=== PATIENT | male | born 1995 | race American Indian/Alaskan Native ===

== ENCOUNTER 2020-01-18 03:59 | Emergency (ER) | payer OTHER ==
--- NOTE | 2020-01-18 05:17 | XRay Report ---
CHEST 2 VIEWS INDICATION / CLINICAL INFORMATION: chestpain. COMPARISON: None available. FINDINGS: SUPPORT DEVICES: None. HEART / MEDIASTINUM: No significant abnormality. LUNGS / PLEURA: No significant pulmonary or pleural abnormality. No pneumothorax. ADDITIONAL FINDINGS: No significant additional findings. IMPRESSION: 1. No acute findings. Signer Name: David Wellington MD Signed: 01/18/2020 5:13 AM Workstation Name: [id number]
[2020-01-18 05:40] LABS: Basophils # (Auto) 0.1 K/mm3 (0.0-0.1); Basophils % (Auto) 1.8 % (0.0-1.8); Eosinophils # (Auto) 0.1 K/mm3 (0.0-0.4); Eosinophils % (Auto) 1.2 % (0.0-4.3); Hemoglobin 16.9 gm/dl (11.8-15.2); Lymphocytes # (Auto) 1.1 K/mm3 (1.2-5.4); Lymphocytes % (Auto) 19.5 % (13.4-35.0); Mean Corpuscular HGB Conc 35 % (32-34); Mean Corpuscular Volume 91 fl (84-94); Monocytes # (Auto) 0.7 K/mm3 (0.0-0.8); Platelet Count 192 K/mm3 (140-440); Red Blood Count 5.37 M/mm3 (3.65-5.03); Red Cell Distribution Width 12.9 % (13.2-15.2)
[2020-01-18] MEDS ORDERED: ALUM-MAG HYDROXIDE-SIMETHICONE 200-200-20MG/5ML ORAL LIQD 30 ML PO ONE (05:41)
[2020-01-18] MEDS ORDERED: HYOSCYAMINE SUBL 0.125 MG TAB SL ONE (05:41)
[2020-01-18] MEDS ORDERED: LIDOCAINE VISCOUS 2% 15 ML ORAL LIQD PO ONE (05:41)
--- NOTE | 2020-01-18 05:50 | Emergency Department Report ---
ED Chest Pain HPI - General Chief Complaint: Anxiety Stated Complaint: ANXIETY RELATED CHEST PAIN Time Seen by Provider: 01/18/20 05:16 Source: patient Mode of arrival: Ambulatory Limitations: No Limitations - History of Present Illness Initial Comments: Patient is a 24-year-old male presents emergency room with complaints of chest pain that began tonight after he drank a shot of alcohol. He states that it feels like indigestion and he feels anxious. He states that he has had intermittent left-sided chest pain for 3 months. He states that it feels like a tightness and squeezing. Patient states that he has been drinking alcohol intermittently over the last month. He denies any nausea, vomiting, diarrhea, fever. He states that he did have cold-like symptoms a couple weeks ago. He has a past medical history of childhood asthma. He denies any allergies to medications. - Related Data Previous Rx's Medication Instructions Recorded Last Taken Type Colchicine 0.6 mg PO DAILY #14 capsule 01/18/20 Unknown Rx Ibuprofen [Motrin 600 MG tab] 600 mg PO TID #42 tablet 01/18/20 Unknown Rx Omeprazole 20 mg PO QHS #30 tablet. 01/18/20 Unknown Rx Allergies Allergy/AdvReac Type Severity Reaction Status Date / Time No Known Allergies Allergy Unverified 01/18/20 04:44 Heart Score - HEART Score History: Slightly suspicious EKG: Normal Age: < 45 Risk factors: No known risk factors Troponin: < normal limit HEART Score: 0 ED Review of Systems ROS: Stated complaint: ANXIETY RELATED CHEST PAIN Other details as noted in HPI Comment: All other systems reviewed and negative ED Past Medical Hx - Past Medical History Previous Medical History?: No - Surgical History Past Surgical History?: No - Social History Smoking Status: Current Every Day Smoker Substance Use Type: None - Medications Home Medications: Home Medications Medication Instructions Recorded Confirmed Last Taken Type Colchicine 0.6 mg PO DAILY #14 capsule 01/18/20 Unknown Rx Ibuprofen [Motrin 600 MG tab] 600 mg PO TID #42 tablet 01/18/20 Unknown Rx Omeprazole 20 mg PO QHS #30 tablet. 01/18/20 Unknown Rx ED Physical Exam - General Limitations: No Limitations General appearance: alert, in no apparent distress - Head Head exam: Present: atraumatic, normocephalic - Eye Eye exam: Present: normal appearance - ENT ENT exam: Present: mucous membranes moist - Respiratory Respiratory exam: Present: normal lung sounds bilaterally. Absent: respiratory distress, wheezes, rales, rhonchi, stridor, chest wall tenderness, accessory muscle use, decreased breath sounds, prolonged expiratory - Cardiovascular Cardiovascular Exam: Present: regular rate, normal rhythm, normal heart sounds. Absent: systolic murmur, diastolic murmur, rubs, gallop - Neurological Exam Neurological exam: Present: alert, oriented X3 - Psychiatric Psychiatric exam: Present: normal affect, normal mood - Skin Skin exam: Present: warm, dry, intact ED Course Vital Signs 01/18/20 04:24 Temperature 98.2 F Pulse Rate 62 Respiratory 18 Rate Blood Pressure 135/61 O2 Sat by Pulse 98 Oximetry MIKE score - Mike Score Age > 65: (0) No Aspirin use within the Past 7 Days: (0) No 3 or more CAD Risk Factors: (0) No 2 or more Angina events in past 24 hrs: (0) No Known CAD with more than 50% Stenosis: (0) No Elevated Cardiac Markers: (0) No ST Deviation Greater than 0.5mm: (0) No MIKE Score: 0 ED Medical Decision Making - Lab Data Result diagrams: 01/18/20 05:19 01/18/20 05:19 Lab Results 01/18/20 01/18/20 01/18/20 Range/Units 05:19 05:19 05:52 WBC 5.6 (4.5-11.0) K/mm3 RBC 5.37 H (3.65-5.03) M/mm3 Hgb 16.9 H (11.8-15.2) gm/dl Hct 49.0 H (35.5-45.6) % MCV 91 (84-94) fl MCH 32 (28-32) pg MCHC 35 H (32-34) % RDW 12.9 L (13.2-15.2) % Plt Count 192 (140-440) K/mm3 Lymph % (Auto) 19.5 (13.4-35.0) % [place] % (Auto) 12.0 H (0.0-7.3) % Eos % (Auto) 1.2 (0.0-4.3) % Baso % (Auto) 1.8 (0.0-1.8) % Lymph # 1.1 L (1.2-5.4) K/mm3 [place] # 0.7 (0.0-0.8) K/mm3 Eos # 0.1 (0.0-0.4) K/mm3 Baso # 0.1 (0.0-0.1) K/mm3 Seg Neutrophils % 65.5 (40.0-70.0) % Seg Neutrophils # 3.7 (1.8-7.7) K/mm3 Sodium 137 (137-145) mmol/L Potassium 4.2 (3.6-5.0) mmol/L Chloride 100.9 (98-107) mmol/L Carbon Dioxide 24 (22-30) mmol/L Anion Gap 16 mmol/L BUN 11 (9-20) mg/dL Creatinine 0.8 (0.8-1.5) mg/dL Estimated GFR > 60 ml/min BUN/Creatinine Ratio 14 % Glucose 107 H (75-100) mg/dL Calcium 9.5 (8.4-10.2) mg/dL Total Bilirubin 1.30 H (0.1-1.2) mg/dL AST 15 (5-40) units/L ALT 10 (7-56) units/L Alkaline Phosphatase 76 (35-129) units/L Total Creatine Kinase 137 (55-170) units/L Troponin T < 0.010 (0.00-0.029) ng/mL Total Protein 7.7 (6.3-8.2) g/dL Albumin 4.7 (3.9-5) g/dL Albumin/Globulin Ratio 1.6 % Plasma/Serum Alcohol < 0.01 (0-0.07) % - EKG Data EKG shows normal: sinus rhythm, axis, intervals, QRS complexes Rate: bradycardia - EKG Data 01/18/20 06:[address] elevation consistent with acute pericarditis no STEMI - Radiology Data Radiology results: report reviewed CHEST 2 VIEWS INDICATION / CLINICAL INFORMATION: chestpain. COMPARISON: None available. FINDINGS: SUPPORT DEVICES: None. HEART / MEDIASTINUM: No significant abnormality. LUNGS / PLEURA: No significant pulmonary or pleural abnormality. No pneumothor ax. ADDITIONAL FINDINGS: No significant additional findings. IMPRESSION: 1. No acute findings. Signer Name: David Wellington MD Signed: 01/18/2020 5:13 AM Workstation Name: [id number] Transcribed By: ALEX Dictated By: David Wellington MD Electronically Authenticated By: David Wellington MD Signed Date/Time: 01/18/20512 DD/ 1 TD/TT: - Medical Decision Making Patient is a 24-year-old male presents emergency room with complaints of chest pain that began tonight after he drank a shot of alcohol. He states that it feels like indigestion and he feels anxious. He states that he has had intermittent left-sided chest pain for 3 months. He states that it feels like a tightness and squeezing. Patient states that he has been drinking alcohol intermittently over the last month. He denies any nausea, vomiting, diarrhea, fever. He states that he did have cold-like symptoms a couple weeks ago. He has a past medical history of childhood asthma. He denies any allergies to medications. Vitals are normal. No abnormality on physical examination as documented in chart. labs are Stable. Troponin is negative. MIKE and heart score are 0. PERC criteria negative for PE. pt is afebrile, no leukocytosis, no IV drug use. Patient given GI cocktail and states that he was feeling better. Patient given prescription for colchicine, ibuprofen, omeprazole. advised pt to Please take medication as prescribed. Follow-up with a hr associate. Follow-up with a primary care doctor. Return to the emergency room for any new or wors ening symptoms. - Differential Diagnosis anemia, anxiety, costochrondritis, PTX, pericarditis, ACS, PE, GERD, PUD Critical care attestation.: If time is entered above; I have spent that time in minutes in the direct care of this critically ill patient, excluding procedure time. ED Disposition Clinical Impression: Chest pain Qualifiers: Chest pain type: unspecified Qualified Code(s): R07.9 - Chest pain, unspecified Pericarditis Qualifiers: Pericarditis type: unspecified type Chronicity: acute Qualified Code(s): I30.9 - Acute pericarditis, unspecified Disposition: - TO HOME OR SELFCARE Is pt being admited?: No Does the pt Need Aspirin: No Condition: Stable Instructions: Chest Pain (ED), Acute Pericarditis (ED) Additional Instructions: Please take medication as prescribed. Follow-up with a hr associate. Follow-up with a primary care doctor. Return to the emergency room for any new or worsening symptoms. Prescriptions: Omeprazole 20 mg PO QHS #30 tablet. Colchicine 0.6 mg PO DAILY #14 capsule Ibuprofen [Motrin 600 MG tab] 600 mg PO TID #42 tablet Referrals: [facility] [Provider Group] - 2-3 Days [id number] [Provider Group] - 2-3 Days ISAMAR HERNANDEZ MD [Staff Physician] - [facility] Days [facility] - 2[facility]3 Days [facility] [Outside] - 2-3 Days Time of Disposition: 06:37 Print Language: [place]
[2020-01-18 05:56] LABS: Alanine Aminotransferase 10 units/L (7-56); Albumin 4.7 g/dL (3.9-5); BUN/Creatinine Ratio 14; Blood Urea Nitrogen 11 mg/dL (9-20); Calcium 9.5 mg/dL (8.4-10.2); Hemolysis Index 9
[2020-01-18 06:56] VITALS: BP 120/75
== END 2020-01-18 06:52 | disposition home or self-care (01) ==
LOC: ED 03:59
DX: I31.9 Disease of pericardium, unspecified (principal); R07.9 Chest pain, unspecified; F41.9 Anxiety disorder, unspecified; F17.200 Nicotine dependence, unspecified, uncomplicated; Z79.899 Other long term (current) drug therapy
CPT/HCPCS: 36415; 71046; 80053; 80320; 82550; 84484; 85025; 93005; 93010; G0480